=== PATIENT | male | born 1995 | race Caucasian/White ===

== ENCOUNTER 2019-11-21 12:50 | Emergency (ER) | payer BC, SELFPAY ==
[~2019-11-21] VITALS: Ht 177.8 cm; Wt 73.5 kg
[2019-11-21] MEDS ORDERED: ZOLO100T PO (12:56)
[2019-11-21] MEDS ORDERED: BOOSTRIX/ADACEL VACCINE (DIPHTH/PERTUSS/ACELL/TETANUS) 0.5ML SYR IM ONE (15:00)
[2019-11-21] MEDS ORDERED: DOXY100C37 PO (15:15)
[2019-11-21 15:17] VITALS: BP 127/71
== END 2019-11-21 15:46 | disposition home or self-care (01) ==
LOC: M ED 12:50
DX: S09.90XA Unspecified injury of head, initial encounter (principal); S01.511A Laceration without foreign body of lip, initial encounter; W22.8XXA Striking against or struck by other objects, initial encounter; Y92.099 Unspecified place in other non-institutional residence as the place of occurrence of the external cause; Y93.89 Activity, other specified; Y99.9 Unspecified external cause status; F41.9 Anxiety disorder, unspecified; Z79.899 Other long term (current) drug therapy; Z88.0 Allergy status to penicillin